=== PATIENT | female | born 1955 | race Asian ===

== ENCOUNTER 2025-01-17 13:22 | Inpatient (IN) | payer MEDICARE ==
[~2025-01-17] VITALS: Ht 172.7 cm; Wt 86.7 kg
[2025-01-17 14:07] LABS: BASOPHILS % (AUTO) 0.2 % (0.0-2.0); EOSINOPHILS # (AUTO) 0.1 K/uL (0.0-0.7); EOSINOPHILS % (AUTO) 1.5 % (0.0-6.0); HEMATOCRIT 40 % (33-45); HEMOGLOBIN 13.6 g/dL (11.5-14.8); LYMPHOCYTES # (AUTO) 0.7 K/uL (0.8-4.8); LYMPHOCYTES % (AUTO) 10.7 % (20.0-44.0); MEAN CORPUSCULAR HEMOGLOBIN 37 PG (26.0-33.0); MEAN CORPUSCULAR HGB CONC 34 g/dl (31.0-36.0); MEAN CORPUSCULAR VOLUME 107 fL (82-100); MONOCYTES # (AUTO) 0.6 K/uL (0.1-1.30); MONOCYTES % (AUTO) 8.8 % (2.0-12.0); NEUTROPHILS # (AUTO) 5.4 K/uL (1.8-8.9); NEUTROPHILS % (AUTO) 78.8 % (43.0-81.0); PLATELET COUNT (AUTO) 332 K/uL (150-450); RED BLOOD CELL COUNT(AUTO) 3.72 MIL/uL (4.0-5.2); RED CELL DISTRIBUTION WIDTH 13.8 % (11.5-15.0); WHITE BLOOD COUNT (AUTO) 6.8 K/uL (4.3-11.0)
[2025-01-17 14:20] LABS: CALCIUM, SERUM 8.8 mg/dL (8.5-10.1); POTASSIUM 3.7 mmol/L (3.5-5.1)
[2025-01-17 14:24] LABS: ALBUMIN 2.8 g/dL (3.4-5.0); BILIRUBIN,DIRECT 0.5 mg/dL (0.0-0.2); BILIRUBIN,TOTAL 0.9 mg/dL (0.2-1.0); TOTAL PROTEIN, SERUM 6.4 g/dL (6.4-8.2)
[2025-01-17] MEDS: IV NS 0.9% 500 ML BAG IV ONE (15:12)
[2025-01-17 15:30] LABS: LACTIC ACID 3.7 mmol/L (0.4-2.0)
[2025-01-17 15:54] LABS: APPEARANCE,URINE CLEAR (CLEAR); BILIRUBIN,URINE 2+ (NEGATIVE); BLOOD, URINE NEGATIVE Ery/uL (NEGATIVE); COLOR,URINE DARK YELLOW (YELLOW); KETONES,URINE TRACE mg/dL (NEGATIVE); LEUKOCYTE ESTERASE ,URINE NEGATIVE (NEGATIVE); NITRITE, URINE NEGATIVE (NEGATIVE); PROTEIN,URINE TRACE mg/dl (NEGATIVE); UGLUCOSE TRACE mg/dL (NEGATIVE)
[2025-01-17 16:08] LABS: BACTERIA,URINE Few /HPF (None Seen); MUCUS,URINE Moderate /LPF (None Seen)
[2025-01-17 16:09] LABS: ADD URINE CULTURE NO; RBC,URINE 0-2 /HPF (0-2); SQUAMOUS EPITHELIAL CELL,UR Few /HPF (None Seen); WBC,URINE 0-2 /HPF (0-3)
[2025-01-17 17:00] VITALS: BP 112/71; TEMP 97.8; O2SAT 96
[2025-01-17] MEDS ORDERED: LORA-259 PO (17:28)
[2025-01-17] MEDS ORDERED: RISP1TAB97 PO (17:28)
[2025-01-17] MEDS ORDERED: TRAZ-257 PO (17:28)
[2025-01-17] MEDS ORDERED: MAG HYDROX/AL HYDROX/SIMETH 30 ML UDC PO PRN (17:30)
[2025-01-17] MEDS ORDERED: ACETAMINOPHEN 325 MG TABLET PO PRN (17:30)
[2025-01-17] MEDS ORDERED: MAGNESIUM HYDROXIDE 30 ML UDC PO PRN (17:30)
[2025-01-17] MEDS: ENOXAPARIN SODIUM 40 MG/0.4 ML DISP.SYRIN SQ SCH (18:00)
[2025-01-17] MEDS: ONDANSETRON HCL/PF 4 MG/2 ML VIAL IVP PRN (18:36)
[2025-01-17] MEDS: IV NS 0.9% 1,000 ML IV PRN (18:36)
[2025-01-17 20:00] VITALS: BP 119/68; TEMP 97.7; O2SAT 99
[2025-01-17] MEDS: TRAZODONE 50 MG TABLET PO SCH (21:15)
[2025-01-18 04:00] VITALS: BP 130/67; TEMP 98; O2SAT 99
[2025-01-18 06:56] LABS: BASOPHILS % (AUTO) 0.5 % (0.0-2.0); EOSINOPHILS # (AUTO) 0.1 K/uL (0.0-0.7); EOSINOPHILS % (AUTO) 1.2 % (0.0-6.0); HEMATOCRIT 38 % (33-45); HEMOGLOBIN 13.2 g/dL (11.5-14.8); LYMPHOCYTES # (AUTO) 1.1 K/uL (0.8-4.8); LYMPHOCYTES % (AUTO) 14.8 % (20.0-44.0); MEAN CORPUSCULAR HEMOGLOBIN 37 PG (26.0-33.0); MEAN CORPUSCULAR HGB CONC 35 g/dl (31.0-36.0); MEAN CORPUSCULAR VOLUME 108 fL (82-100); MONOCYTES # (AUTO) 0.6 K/uL (0.1-1.30); MONOCYTES % (AUTO) 8.7 % (2.0-12.0); NEUTROPHILS # (AUTO) 5.6 K/uL (1.8-8.9); NEUTROPHILS % (AUTO) 74.8 % (43.0-81.0); PLATELET COUNT (AUTO) 338 K/uL (150-450); RED BLOOD CELL COUNT(AUTO) 3.55 MIL/uL (4.0-5.2); RED CELL DISTRIBUTION WIDTH 13.7 % (11.5-15.0); WHITE BLOOD COUNT (AUTO) 7.4 K/uL (4.3-11.0)
[2025-01-18 07:04] LABS: ALBUMIN 2.7 g/dL (3.4-5.0); BILIRUBIN,DIRECT 0.4 mg/dL (0.0-0.2); BILIRUBIN,TOTAL 0.7 mg/dL (0.2-1.0); CALCIUM, SERUM 8.7 mg/dL (8.5-10.1); CREATININE 0.9 mg/dL (0.6-1.3); MAGNESIUM 2.1 mg/dL (1.8-2.4); PHOSPHORUS 3.9 mg/dL (2.5-4.9); POTASSIUM 3.8 mmol/L (3.5-5.1); TOTAL PROTEIN, SERUM 5.9 g/dL (6.4-8.2)
[2025-01-18 07:11] LABS: THYROID STIMULATING HORMONE 3.35 uIU/mL (0.358-3.74)
[2025-01-18] MEDS: PANTOPRAZOLE 40 MG TABLET.DR PO SCH (07:40)
[2025-01-18 08:00] VITALS: BP 136/69; TEMP 97.9; O2SAT 100
[2025-01-18 08:00] LABS: LACTIC ACID 2.5 mmol/L (0.4-2.0)
[2025-01-18] MEDS: CLOTRIMAZOLE 1% 15 GM TUBE TP SCH (10:00)
[2025-01-18] MEDS: LORAZEPAM 1 MG TABLET PO PRN (14:17)
[2025-01-18 16:00] VITALS: BP 121/72; TEMP 98.2; O2SAT 95
[2025-01-18] MEDS: IV LR 1000 ML 1,000 ML IV PRN (16:00)
[2025-01-18] MEDS: risperiDONE 1 MG TABLET PO SCH (19:04)
[2025-01-18 20:00] VITALS: BP 127/80; TEMP 98; O2SAT 100
[2025-01-18] MEDS: ATORVASTATIN 40 MG TABLET PO SCH (21:35)
[2025-01-19 04:00] VITALS: BP 134/80; TEMP 98; O2SAT 100
[2025-01-19 07:32] LABS: BASOPHILS % (AUTO) 0.7 % (0.0-2.0); EOSINOPHILS # (AUTO) 0.1 K/uL (0.0-0.7); EOSINOPHILS % (AUTO) 1.5 % (0.0-6.0); HEMATOCRIT 38 % (33-45); HEMOGLOBIN 12.6 g/dL (11.5-14.8); LYMPHOCYTES # (AUTO) 1.2 K/uL (0.8-4.8); LYMPHOCYTES % (AUTO) 18.2 % (20.0-44.0); MEAN CORPUSCULAR HEMOGLOBIN 36 PG (26.0-33.0); MEAN CORPUSCULAR HGB CONC 34 g/dl (31.0-36.0); MEAN CORPUSCULAR VOLUME 107 fL (82-100); MONOCYTES # (AUTO) 0.5 K/uL (0.1-1.30); MONOCYTES % (AUTO) 7.5 % (2.0-12.0); NEUTROPHILS # (AUTO) 4.9 K/uL (1.8-8.9); NEUTROPHILS % (AUTO) 72.1 % (43.0-81.0); PLATELET COUNT (AUTO) 317 K/uL (150-450); RED BLOOD CELL COUNT(AUTO) 3.52 MIL/uL (4.0-5.2); RED CELL DISTRIBUTION WIDTH 13.7 % (11.5-15.0); WHITE BLOOD COUNT (AUTO) 6.7 K/uL (4.3-11.0)
[2025-01-19 07:40] LABS: LACTIC ACID 1.1 mmol/L (0.4-2.0)
[2025-01-19 08:00] VITALS: BP 139/76; TEMP 97.7; O2SAT 96
[2025-01-19 08:17] LABS: ALBUMIN 2.4 g/dL (3.4-5.0); BILIRUBIN,TOTAL 0.7 mg/dL (0.2-1.0); CALCIUM, SERUM 8.4 mg/dL (8.5-10.1); CREATININE 0.7 mg/dL (0.6-1.3); MAGNESIUM 1.9 mg/dL (1.8-2.4); POTASSIUM 3.6 mmol/L (3.5-5.1); TOTAL PROTEIN, SERUM 5.5 g/dL (6.4-8.2)
[2025-01-19] MEDS ORDERED: IOHEXOL-300 100 ML VIAL IV ONE (12:48)
[2025-01-19] MEDS ORDERED: CT SWABBABLE VALVE TRANS SET 1 EA INFUS.SET MC ONE (12:48)
[2025-01-19] MEDS ORDERED: IV NS 0.9% 250 ML IV ONE (12:48)
[2025-01-19] MEDS ORDERED: LORA-259 PO (15:06)
[2025-01-19] MEDS ORDERED: ONDA4TAB11 PO (15:14)
[2025-01-19 16:00] VITALS: BP 111/68; TEMP 97.8; O2SAT 94
== END 2025-01-19 21:33 | disposition home health service (06) | DRG 641 ==
LOC: ER 13:25 → MEDSG1 16:34
PROVIDERS: ADMIT Nurse Practitioner Family; ATTEND Nurse Practitioner Family
DX: E86.0 Dehydration (principal); E44.1 Mild protein-calorie malnutrition; E87.1 Hypo-osmolality and hyponatremia; E87.20 Acidosis, unspecified; R62.7 Adult failure to thrive; E66.9 Obesity, unspecified; E78.5 Hyperlipidemia, unspecified; E88.09 Other disorders of plasma-protein metabolism, not elsewhere classified; K76.0 Fatty (change of) liver, not elsewhere classified; Z68.29 Body mass index [BMI] 29.0-29.9, adult; R53.1 Weakness; R26.81 Unsteadiness on feet; R73.9 Hyperglycemia, unspecified; F31.9 Bipolar disorder, unspecified
CPT/HCPCS: 36415; 71045-TC; 76700-TC; 80048-TC; 80053-TC; 80061-TC; 80076-TC; 81001; 82607-TC; 83605-TC; 83690-TC; 83735-TC; 84100-TC; 84443-TC; 84484-TC; 85025-TC; 87040-TC; 87086-TC; 97110-TC; 97116-TC; 97530-TC; A4223; G0378; J1650; J2405; J7030; J7040; J7050; J7120; Q9967